=== PATIENT | male | born 1990 | race Two or more races ===

== ENCOUNTER 2019-03-15 06:38 | Emergency (ER) | payer OTHER, MEDICAID ==
[~2019-03-15] VITALS: Ht 182.9 cm; Wt 102.1 kg
[2019-03-15] MEDS ORDERED: METHOCARBAMOL 500 MG TAB PO ONE (08:15)
[2019-03-15] MEDS ORDERED: KETOROLAC TROMETH 60MG/2ML VIAL IM ONE (08:15)
[2019-03-15 10:11] VITALS: BP 110/69
== END 2019-03-15 10:43 | disposition home or self-care (01) ==
LOC: ER 06:38 → EDBD 06:38 → ER 10:43
DX: M62.838 Other muscle spasm (principal); M54.5 Low back pain; V49.9XXA Car occupant (driver) (passenger) injured in unspecified traffic accident, initial encounter; Y93.89 Activity, other specified; Y92.89 Other specified places as the place of occurrence of the external cause; Y99.8 Other external cause status
CPT/HCPCS: 71045; 72100; 72125; 81002; 96372; 99284; J1885